=== PATIENT | male | born 1980 ===

== ENCOUNTER 2024-06-05 15:00 | Outpatient (CLI) | payer OTHER | END 2024-06-05 15:04 | disposition home or self-care (01) | LOC: RAD 15:00 | DX: M25.562 Pain in left knee (principal) ==

== ENCOUNTER 2024-08-07 14:19 | Outpatient (CLI) | payer OTHER | END 2024-08-07 14:24 | disposition home or self-care (01) | LOC: RAD 14:19 | DX: M79.641 Pain in right hand (principal); M79.642 Pain in left hand ==